=== PATIENT | female | born 1980 | race Caucasian/White ===

== ENCOUNTER 2016-10-25 10:03 | Outpatient (CLI) ==
--- NOTE | 2016-10-25 16:19 | MRI ---
EXAM: MRI thoracic spine without IV contrast. DATE: 25 October 2016. HISTORY: Point tenderness at the T12 spinous process. TECHNIQUE: Sagittal and axial T1W and T2W sequences of the thoracic spine along with sagittal IR an d coronal T2W sequences were obtained using 1.2 Mehreen magnet. No IV contrast. COMPARISON: T-spine series 15 August 2016. FINDINGS: There are 12 thoracic vertebra with paired ribs. No thoracic scoliosis is detected. No acute T-spine fracture, subluxation, osseous malignancy, or jumped facet is evident. Thoracic verte bra are normal in height. Bone marrow signal is normal. No abnormal signal is identified within th e spinous processes (specifically T12). Interspinous ligaments are normal. No anterior or posterio r longitudinal ligament tear is detected. Small anterior osteophytes are noted at T7-8, T8-9 and T9 -10. There is disc desiccation and multiple mid thoracic intervertebral discs and minor disc space narrowing at T8-9. Conus medullaris terminates at L1-2. No cord edema, myelomalacia, or neoplasm i s detected. T2W bright, T1W dark, 1.5 and 22 mm diameter bright vertical column in the spinal cord from T1 to T4 may represent a small syrinx versus artifact. A T2W bright, T1W isointense, 10.8 mm focus in the left lobe thyroid gland is not fully characterize d. Trachea, mainstem bronchi, thoracic esophagus and thoracic aorta normal. Heart size is overall normal. Pectus excavatum is noted. T2W bright, 7.3 mm AP x 3 cm transverse x 15 mm CC a focus betw een the esophagus and posterosuperior right atrial wall is best seen on axial images #24 and #25. T his may represent a small pericardial recess/pericardial effusion. No mediastinal or hilar lymphade nopathy, lung mass, pneumonia, or pleural effusion is identified. Minor right apical lung scarring is suspected posteriorly. There is minor dependent density in the lung bases. Visible portions of the shoulders reveal no abnormality. Visible portions of the liver, spleen, adrenal glands kidneys are normal. Segmental analysis: T1-2: No disc protrusion, central stenosis or foraminal stenosis. T2-3: No disc protrusion, central stenosis or foraminal stenosis. T3-4: No disc protrusion, central stenosis or foraminal stenosis. T4-5: No disc protrusion, central stenosis or foraminal stenosis. T5-6: Minimal posterior disc bulge and dorsal epidural fat cause mild narrowing of the thecal sac. Each foramen is patent. T6-7: Minimal posterior disc bulge and dorsal epidural fat cause mild narrowing of the thecal sac. Each foramen is patent. T7-8: Abundant dorsal epidural fat causes mild narrowing of the thecal sac. Each foramen is patent . T8-9: Minor posterior disc bulge and dorsal epidural fat cause moderate narrowing the thecal sac. Each foramen is patent. T9-10: Small posterior disc bulge and mild facet arthropathy cause moderate narrowing of the thecal sac. Each foramen is patent. T10-11: Right paracentral disc protrusion (1.5 x 4 mm) does not contact the cord. The disc protrus ion, mild facet disease, and dorsal epidural fat cause mild central canal stenosis. Each foramen is patent. T11-12: Normal. T12-L1: Normal. IMPRESSIONS: 1. Thoracic spine mild facet arthropathy, mild DDD, and spinal lipomatosis. 2. Multilevel central canal stenosis (T5-6: Mild. T6-7: Mild. T7-8: Mild. T8-9: Moderate. T9-10 : Moderate. T10-11: Mild). 3. No thoracic foraminal stenosis. 4. Mild pectus excavatum deformity. 5. Possible small pericardial effusion / pericardial recess. A duplication cyst, duodenal divertic ulum, or bronchogenic cyst are less likely.
== END 2016-10-25 10:04 | disposition home or self-care (01) ==
LOC: RAD 10:03
PROVIDERS: ATTEND Psychiatry & Neurology Addiction Medicine
DX: M54.6 Pain in thoracic spine (principal)

== ENCOUNTER 2017-08-14 15:18 | Emergency (ER) ==
[2017-08-14 15:28] VITALS: BP 102/64; TEMP 97.7; BMI 19.6
[2017-08-14] MEDS ORDERED: TETANUS DIPHTHERIA TOXOIDS IM ONE (16:01)
--- NOTE | 2017-08-14 16:01 | ED.PDOC ---
General ED Provider: Dr. LAW HARRIS Chief Complaint: Laceration Stated Complaint: left wrist laceration Time Seen by Physician: 15:20 (see photo) Mode of Arrival: Walk-In Information Source: Patient Exam Limitations: No limitations [facility] Documentation Reviewed and Agree: Yes (charles at bedside at all times ) Skin Complaint Exam - Laceration/Upper Ext. Complaint/Exam Location of Injury: Left (wrist) Mechanism of Injury: Laceration Onset/Duration: 1 hr Symptoms Are: Still present Initial Severity: Mild Current Severity: Mild Aggravating: None Alleviating: None Associated Signs and Symptoms: Denies: Fever, Chills, Erythema, Numbness, Tingling Differential Diagnoses: Abrasion Review of Systems - Review Of Systems Constitutional: Reports: No symptoms Eyes: Reports: No symptoms Ears, Nose, Mouth, Throat: Reports: No symptoms Respiratory: Reports: No symptoms Cardiac: Reports: No symptoms GI: Reports: No symptoms : Reports: No symptoms Musculoskeletal: Reports: No symptoms Skin: Reports: Other (laceration left wrist) Neurological: Reports: No symptoms Endocrine: Reports: No symptoms Hematologic/Lymphatic: Reports: No symptoms All Other Systems: Reviewed and Negative Past Medical History - Past Medical History Previously Healthy: Yes Endocrine: Reports: None Cardiovascular: Reports: None Respiratory: Reports: None Hematological: Reports: None Gastrointestinal: Reports: None Genitourinary: Reports: None Neuro/Psych: Reports: None Musculoskeletal: Reports: None Cancer: Reports: None Last Menstrual Period: unknown Other Pertinent Past Medical History: Drug Dependance currently on suboxone - Surgical History General Surgical History: Reports: None - Family History Family History: Reports: None - Social History Smoking Status: Current every day smoker, Heavy tobacco smoker Hx Substance Use: No Alcohol Screening: None - Immunizations Tetanus Shot up to Date: No (unknown) Physical Exam - Physical Exam Appearance: Well-appearing, No pain distress, Well-nourished Eyes: RADHA, EOMI, Conjunctiva clear ENT: Ears normal, Nose normal, Oropharynx normal Respiratory: Airway patent, Breath sounds clear, Breath sounds equal, Respirations nonlabored Cardiovascular: RRR, Pulses normal, No rub, No murmur GI/: Soft, Nontender, No masses, Bowel sounds normal, No Organomegaly Musculoskeletal: Normal strength, ROM intact, No edema, No calf tenderness Skin: Warm, Dry (3 cm laceration left wrist see photo superficial no tendon or vascular injury) Neurological: Sensation intact, Motor intact, Reflexes intact, Cranial nerves intact, Alert, Oriented Psychiatric: Affect appropriate, Mood appropriate Critical Care Note - Critical Care Note Total Time (mins): 0 Course - Course Vital Signs: Temp Pulse Resp BP Pulse Ox 08/14/17 15:19 97.7 F 62 20 102/64 93 L Departure - Departure Time of Disposition: 16:00 Disposition: HOME SELF-CARE Discharge Problem: Laceration - injury Instructions: Laceration (ED) Condition: Good Pt referred to PMD for follow-up: Yes Allergies/Adverse Reactions: Allergies No Known Drug Allergies Adverse Reaction (Verified 08/14/17 15:28) Home Medications: Ambulatory Orders Buprenorphine HCl/Naloxone HCl [Suboxone 8 mg-2 mg Sl Film] 1 tab PO BID
== END 2017-08-14 16:58 | disposition home or self-care (01) ==
LOC: ED 15:18
DX: S61.512A Laceration without foreign body of left wrist, initial encounter (principal); F17.210 Nicotine dependence, cigarettes, uncomplicated; W45.8XXA Other foreign body or object entering through skin, initial encounter
CPT/HCPCS: 90471; 90714; 99283